=== PATIENT | female | born 1980 | race Two or more races ===

== ENCOUNTER → 2024-05-22 10:46 | Outpatient (CLI) | payer OTHER ==
[2024-05-22 12:13] LABS: HEMATOCRIT 42.9 % (36.0-45.00); HEMOGLOBIN 14.7 g/dL (12.0-15.00); MEAN CELL VOLUME 81.6 fL (80.00-100.00); MEAN CORPUSCULAR HEMOGLOBIN 28.1 pg (27.00-32.0); MEAN CORPUSCULAR HGB CONC 34.4 g/dl (32.0-36.0); PLATELET COUNT 319 K/uL (150-450); RED BLOOD COUNT 5.26 M/uL (4.00-6.00)
[2024-05-22 12:28] LABS: PH,URINE 7.5 (5.0-8.0); URINE APPEARANCE Clear; URINE BILIRRUBIN Negative (NEGATIVE); URINE BLOOD Negative; URINE COLOR Yellow; URINE GLUCOSE Negative (NEGATIVE); URINE KETONE Negative (NEGATIVE); URINE LEUKOCYTE Negative; URINE NITRATE Negative; URINE PROTEIN Negative (NEGATIVE); URINE UROBILINOGEN 0.2 E.U./dl
[2024-05-22 12:29] LABS: URINE BACTERIA 41.5 uL (0.0-1933); URINE EPITHELIAL CELLS 4.9 uL (0.0-38.8)
[2024-05-22 12:34] LABS: URINE WBC 0.4 uL (0.0-23.2)
[2024-05-22 13:13] LABS: ALBUMIN 3.8 gm/dL (3.4-5.0); BILIRUBIN TOTAL 0.42 mg/dL (0.3-1.2); CALCIUM 8.7 mg/dL (8.5-10.1); CHOL HDL RATIO 4.1 (0-5.0); CREATININE SERUM 0.64 mg/dL (0.55-1.02); FERRITIN 64.3 NG/ML (8-252); GFR 102.26; GLOBULINA 2.9 G/DL (2.4-3.5); POTASSIUM 3.41 mEq/L (3.5-5.1); T4 TOTAL 11.18 UG/DL (4.8-13.9); TOTAL PROTEIN 6.7 gm/dL (6.4-8.2); TSH 0.946 uIU/mL (0.358-3.74)
[2024-05-22 13:57] LABS: FOLIC ACID 7.67 ng/ml (4.78-20); T3 TOTAL 1.02 ng/ml (0.846-2.02); VITAMIN D3 25 HYDROXY 22.96 ng/ml (30-120)
== END | disposition home or self-care (01) ==
LOC: LAB 10:46
PROVIDERS: ATTEND Surgery
DX: N39.0 Urinary tract infection, site not specified (principal); D46.4 Refractory anemia, unspecified; E11.9 Type 2 diabetes mellitus without complications; E03.9 Hypothyroidism, unspecified; E54 Ascorbic acid deficiency; E55.9 Vitamin D deficiency, unspecified; D51.9 Vitamin B12 deficiency anemia, unspecified; B96.81 Helicobacter pylori [H. pylori] as the cause of diseases classified elsewhere

== ENCOUNTER 2024-05-23 07:42 | Outpatient (CLI) | payer OTHER | END 2024-05-23 07:44 | disposition home or self-care (01) | LOC: SONOGRAMA 07:42 | PROVIDERS: ATTEND Surgery | DX: K76.0 Fatty (change of) liver, not elsewhere classified (principal) ==

== ENCOUNTER 2024-05-23 08:49 | Outpatient (CLI) | payer OTHER | END 2024-05-23 08:54 | disposition home or self-care (01) | LOC: LAB 08:49 | PROVIDERS: ATTEND Surgery | DX: N39.0 Urinary tract infection, site not specified (principal); D46.4 Refractory anemia, unspecified; E11.9 Type 2 diabetes mellitus without complications; E03.9 Hypothyroidism, unspecified; E54 Ascorbic acid deficiency; E55.9 Vitamin D deficiency, unspecified; D51.9 Vitamin B12 deficiency anemia, unspecified; B96.81 Helicobacter pylori [H. pylori] as the cause of diseases classified elsewhere ==

== ENCOUNTER → 2024-07-19 09:46 | Outpatient (CLI) | payer OTHER ==
[2024-07-19 10:57] LABS: HEMATOCRIT 43.1 % (36.0-45.00); HEMOGLOBIN 14.5 g/dL (12.0-15.00); MEAN CORPUSCULAR HEMOGLOBIN 27.6 pg (27.00-32.0); MEAN CORPUSCULAR HGB CONC 33.6 g/dl (32.0-36.0); PLATELET COUNT 322 K/uL (150-450); RED BLOOD COUNT 5.26 M/uL (4.00-6.00); RED CELL DISTRIBUTION WIDTH 14.8 % (11.5-14.5)
[2024-07-19 11:01] LABS: PH,URINE 5.5 (5.0-8.0); URINE APPEARANCE Cloudy; URINE BILIRRUBIN Negative (NEGATIVE); URINE BLOOD Trace; URINE COLOR Yellow; URINE GLUCOSE Negative (NEGATIVE); URINE KETONE Negative (NEGATIVE); URINE LEUKOCYTE Negative; URINE NITRATE Negative; URINE PROTEIN Negative (NEGATIVE); URINE UROBILINOGEN 0.2 E.U./dl
[2024-07-19 11:05] LABS: URINE BACTERIA 851.7 uL (0.0-1933); URINE EPITHELIAL CELLS 28.9 uL (0.0-38.8); URINE RBC 16.4 uL (0.0-20.8); URINE WBC 2.5 uL (0.0-23.2)
[2024-07-19 11:08] LABS: URINE CAST 0.14 uL (0.0-1.40)
[2024-07-19 12:22] LABS: ALBUMIN 3.7 gm/dL (3.4-5.0); BILIRUBIN TOTAL 0.39 mg/dL (0.3-1.2); CALCIUM 9.1 mg/dL (8.5-10.1); CHOL HDL RATIO 4.1 (0-5.0); CREATININE SERUM 0.69 mg/dL (0.55-1.02); GFR 93.76; GLOBULINA 3.2 G/DL (2.4-3.5); POTASSIUM 4.03 mEq/L (3.5-5.1); TOTAL PROTEIN 6.9 gm/dL (6.4-8.2); TSH 1.73 uIU/mL (0.358-3.74)
== END | disposition home or self-care (01) ==
LOC: LAB 09:46
DX: I10 Essential (primary) hypertension (principal); Z11.3 Encounter for screening for infections with a predominantly sexual mode of transmission; Z12.11 Encounter for screening for malignant neoplasm of colon

== ENCOUNTER 2024-07-19 10:36 | Outpatient (CLI) | payer OTHER | END 2024-07-19 10:43 | disposition home or self-care (01) | LOC: MAMO-SONO 10:36 | DX: Z12.31 Encounter for screening mammogram for malignant neoplasm of breast (principal); R92.30 Dense breasts, unspecified ==

== ENCOUNTER 2024-10-29 09:58 | Outpatient (CLI) | payer OTHER ==
[2024-10-29 10:51] LABS: HEMATOCRIT 45.5 % (36.0-45.00); HEMOGLOBIN 15.5 g/dL (12.0-15.00); MEAN CELL VOLUME 81.7 fL (80.00-100.00); MEAN CORPUSCULAR HEMOGLOBIN 27.8 pg (27.00-32.0); PLATELET COUNT 378 K/uL (150-450); RED BLOOD COUNT 5.57 M/uL (4.00-6.00)
[2024-10-29 11:28] LABS: ALBUMIN 3.8 gm/dL (3.4-5.0); BILIRUBIN TOTAL 0.35 mg/dL (0.3-1.2); CALCIUM 9.1 mg/dL (8.5-10.1); CREATININE SERUM 0.79 mg/dL (0.55-1.02); FERRITIN 68.3 NG/ML (8-252); GFR 80.2; GLOBULINA 3.4 G/DL (2.4-3.5); POTASSIUM 3.04 mEq/L (3.5-5.1); T4 TOTAL 10.6 UG/DL (4.8-13.9); TOTAL PROTEIN 7.2 gm/dL (6.4-8.2); TSH 2.6 uIU/mL (0.358-3.74)
[2024-10-29 13:13] LABS: FOLIC ACID 6.51 ng/ml (4.78-20); T3 TOTAL 1.04 ng/ml (0.846-2.02); VITAMIN D3 25 HYDROXY 28.47 ng/ml (30-120)
== END 2024-10-29 10:01 | disposition home or self-care (01) ==
LOC: LAB 09:58
PROVIDERS: ATTEND Surgery
DX: E11.9 Type 2 diabetes mellitus without complications (principal); E03.9 Hypothyroidism, unspecified; E54 Ascorbic acid deficiency; E55.9 Vitamin D deficiency, unspecified

== ENCOUNTER 2024-10-29 10:35 | Outpatient (CLI) | payer OTHER | END 2024-10-29 10:38 | disposition home or self-care (01) | LOC: SONOGRAMA 10:35 | PROVIDERS: ATTEND Surgery | DX: K76.0 Fatty (change of) liver, not elsewhere classified (principal) ==